=== PATIENT | female | born 1990 | race Caucasian/White ===

== ENCOUNTER 2019-01-01 16:24 | Emergency (ER) | payer OTHER ==
[2019-01-01 18:40] VITALS: BMI 27.6
[2019-01-01] MEDS ORDERED: Lactated Ringer's 1,000 ML IV SCH (19:00)
[2019-01-01 19:18] LABS: SQUAMOUS EPITHIAL 1 /hpf (0-5); URINE BACTERIA MANY (<OCC); URINE BILIRUBIN NEGATIVE (NEGATIVE); URINE BLOOD NEGATIVE (NEGATIVE); URINE CLARITY Clear (Clear); URINE COLOR Straw (YELLOW); URINE GLUCOSE (UA) NORMAL (Normal); URINE LEUKOCYTE ESTERASE NEG Leu/uL (Negative); URINE PROTEIN NEGATIVE (NEGATIVE); URINE UROBILINOGEN NORMAL mg/dL (0.2-1.0)
[2019-01-01 19:19] LABS: BASO % 0.3 % (0.0-2.0); EOS % 0.4 % (0.0-4.0); LYMPH # 1.6 K/uL (1.0-4.3); LYMPH % 16.7 % (20.0-40.0); MEAN CELL VOLUME 73.8 fL (81.0-99.0); MEAN CORPUSCULAR HEMOGLOBIN 23.1 pg (27.0-31.0); MEAN CORPUSCULAR HGB CONC 31.3 g/dL (33.0-37.0); MEAN PLATELET VOLUME 8.1 fL (7.2-11.7); MONO % 11.1 % (0.0-10.0); NEUT # 6.7 K/uL (1.8-7.0); NEUT % 71.5 % (50.0-75.0); NRBC % 0.2 % (0.0-2.0); RBC 3.04 Mil/uL (3.80-5.20); WHITE BLOOD COUNT 9.4 K/uL (4.8-10.8)
[2019-01-01 19:23] LABS: ALB/GLOB RATIO 1.2 (1.0-2.1); ALBUMIN 3.8 g/dL (3.5-5.0); ALT/SGPT 8 U/L (9-52); AST/SGOT 20 U/L (14-36); BLOOD UREA NITROGEN 5 mg/dL (7-17); CALCIUM 9.2 mg/dl (8.6-10.4); GFR NON-AFRICAN AMERICAN > 60
--- NOTE | 2019-01-01 19:36 | OBHP ---
Datetime: 01/01/2019 19:09 IP Adm Impression: , intrauterine ; No Active Labor; Intact Membranes IP Chief Complaint Other: Symptomatic anemia, s/p syncopal episode Twin IVF IP Admit Plan: Observation/Evaluation Admit Comment, IP Provider: Patient is a 28 year old at 26w4d JAMIA 04/05/19 by US who presents to the unit from Dr Mderano's office (heme/onc) for evaluation. Patient was referred to Dr Medrano for a nemia workup. Per the her hemoglobin was 7.3. On arrival to see Dr Medrano today, the patient h ad a syncopal episode. She did not fall or hit her head. Her was able to catch her. Per the p atient she had another similar syncopal episode 3 weeks ago at home. She states that prior to this sh e has never been told that she was anemia. Currently she denies any complaints. She denies headaches, dizziness, cp, palpitations, sob, abdominal pain or urinary symptoms. She endors +FM, denies CTX, VB , LOF. Patient is a private of Dr Lisa Tomlinson. Issues: IVF pregnany, date of implantation was 07/18/18 Anemia in - last hemoglobin was 7.3 Twin gestation OB Hx: . 2013 SAB at 7 weeks 2. Current [employer] Hx: LMP 05/18/18 [facility] 13 x regular x 5 days Reports having a history of fibroids and ovarian cysts Denies any history of abnormal pap smears Allergies: NKDA Medications: PNV, Folic acid Medical History: Denies Surgical History: Denies Social History: Denies alcohol, tobacco, drug use; lives with , for 7 years Family History: Mother - healthy; Father - healthy PE: see above A/P: 28 year old at 26w4d twin gestation who was sent from the office for symptomatic anem ia, s/p syncopal episode -CEFM and TOCO -Labs: CBC, CMP, T+S, ferritin, reticulocyte count, vitamin B12, folate, urinalysis -Started on IV fluid hydration -Patient has been type and crossed two units -Discussed the case with Dr Medrano who recommends transfusing two units of PRBCs as the patient is symptomatic -Dr Lisa Tomlinson is aware Plan discussed with Dr Stephen Betancur DO PGY-2 Pelvic Type - PN: Adequate Extremities - PN: Normal Abdomen - PN: Normal Back - PN: Normal Breast - PN: Not Done Lungs - PN: Normal Heart - PN: Normal Thyroid - PN: Normal Neurologic - PN: Normal HEENT - PN: Normal General - PN: Normal FHR - Baseline A Provider: 160/156 Membranes, Provider: Intact Comments, ACOG Physical Exam: Gen: NAD, AAOX3 CV: Tachycardic, no murmurs Lungs: CTA B/L Abd: soft, gravid Ext: No clubbing, cyanosis, edema EFM: Baby A 160bpm (RLQ), Baby 155 bpm (hypogastrium) Gestation - Est Wks by US: 26.4 EGA AdmitDate IP: 26.4 Vital Signs Provider: Reviewed IP Chief Complaint: Other NICHD Variability Prov Fetus A: Moderate 6-25bpm NICHD Accel Fetus A IP Provider: 10X10 FHR Category Provider Fetus A: Category I NICHD Decel Fetus A IP Provider: None Genitourinary Exam: Normal DTRs - PN: Normal
[2019-01-01 20:28] LABS: FOLATE > 20.0 ng/mL
[2019-01-01] MEDS ORDERED: Betamethasone Soluspan 30 mg/5mL Inj Susp IM ONE (21:48)
[2019-01-01] MEDS ORDERED: Magnesium Sulfate 4 gm/100 ml 4 GM/100 ML BAG IVPB ONE (21:50)
--- NOTE | 2019-01-01 22:06 | OBADHP ---
Datetime: 01/01/2019 21:00 Membranes, Provider: Intact Contraction Comments Provider: 3-4 mins Gestation - Est Wks by US: 26.4 Vital Signs Provider: Reviewed; Within Normal Limits Dilatation, Provider: 0 Datetime: 01/01/2019 19:09 IP Chief Complaint Other: Symptomatic anemia, s/p syncopal episode Twin IVF Admit Comment, IP Provider: Patient is a 28 year old at 26w4d JAMIA 04/05/19 by US who presents to the unit from Dr Medrano's office (heme/onc) for evaluation. Patient was referred to Dr Medrano for a nemia workup. Per the her hemoglobin was 7.3. On arrival to see Dr Medrano today, the patient h ad a syncopal episode. She did not fall or hit her head. Her was able to catch her. Per the p atient she had another similar syncopal episode 3 weeks ago at home. She states that prior to this sh e has never been told that she was anemia. Currently she denies any complaints. She denies headaches, dizziness, cp, palpitations, sob, abdominal pain or urinary symptoms. She endors +FM, denies CTX, VB , LOF. Patient is a private of Dr Lisa Tomlinson. Issues: IVF pregnany, date of implantation was 07/18/18 Anemia in - last hemoglobin was 7.3 Twin gestation OB Hx: 1. 2013 SAB at 7 weeks 2. Current [employer] Hx: LMP 05/18/18 [facility] 13 x regular x 5 days Reports having a history of fibroids and ovarian cysts Denies any history of abnormal pap smears Allergies: NKDA Medications: PNV, Folic acid Medical History: Denies Surgical History: Denies Social History: Denies alcohol, tobacco, drug use; lives with , for 7 years Family History: Mother - healthy; Father - healthy PE: see above A/P: 28 year old at 26w4d twin gestation who was sent from the office for symptomatic anem ia, s/p syncopal episode UC's Q 3-4 mins recorded and palpated but not perceived by the patient SVE closed and long Fibronectin collected and sent prior to SVE and pt denied any sex within the past 72 hours NST Reactive x 2 -Labs: CBC, H_H 7.0/22.4 CMP, T+S, ferritin, reticulocyte count, vitamin B12, folate, urinalysis pending -IV fluid hydration with LR -Patient has been type and crossed two units -Discussed the case with Dr Medrano who recommends transfusing two units of PRBCs as the patient is symptomatic -Dr Lisa Tomlinson is aware Plan discussed with Dr Stephen Betancur DO PGY-2 Pt seen and examined with Dr. Betancur and all of her findings and POC were reviewed and agreed on Pelvic Type - PN: Adequate Extremities - PN: Normal Abdomen - PN: Normal Back - PN: Normal Breast - PN: Not Done Lungs - PN: Normal Heart - PN: Normal Thyroid - PN: Normal Neurologic - PN: Normal HEENT - PN: Normal General - PN: Normal FHR - Baseline A Provider: 160/156 Comments, ACOG Physical Exam: Gen: NAD, AAOX3 CV: Tachycardic, no murmurs Lungs: CTA B/L Abd: soft, gravid Ext: No clubbing, cyanosis, edema EFM: Baby A 160bpm (RLQ), Baby 155 bpm (hypogastrium) IP Chief Complaint: Other NICHD Variability Prov Fetus A: Moderate 6-25bpm NICHD Accel Fetus A IP Provider: 10X10 FHR Category Provider Fetus A: Category I NICHD Decel Fetus A IP Provider: None Genitourinary Exam: Normal DTRs - PN: Normal EGA AdmitDate IP: 26.4 IP Adm Impression: , intrauterine ; No Active Labor; Intact Membranes IP Admit Plan: Observation/Evaluation
--- NOTE | 2019-01-01 22:09 | OBPN ---
Datetime: 01/01/2019 21:00 IP Progress Impression Other: Symptomatic acute Anemia IP Progress Impression: Reassuring heart rate; labor Membranes, Provider: Intact Contraction Comments Provider: 3-4 mins Gestation - Est Wks by US: 26.4 IP Progress Note Comment: Pt seen and examined again Persistent Uterine contractions although still not perceived by patient FHT's reassuring x 2 Still waiting for the blood to be ready for transfusion Discussed with Dr. Tomlinson the present situation regarding tocolysis and she stated that she will di scussed with Dr. Warren [facility] and will let me know their plan of care Vital Signs Provider: Reviewed; Within Normal Limits Dilatation, Provider: 0 Datetime: 01/01/2019 19:09 FHR - Baseline A Provider: 160/156 NICHD Accel Fetus A IP Provider: 10X10 FHR Category Provider Fetus A: Category I NICHD Variability Prov Fetus A: Moderate 6-25bpm NICHD Decel Fetus A IP Provider: None
--- NOTE | 2019-01-01 22:32 | OBDCSUM ---
Datetime: 01/01/2019 22:08 Discharged to, Provider: Ambulance transfer to [facility] Disch Instr Activity: Bedrest Disch Instr Diet: Regular Discharge Diagnosis, Provider: Labor Discharge Comment, Provider: 27 weeks twin (IVF)/Pt of Dr. Tomlinson Symptomatic Acute Anemia/Blood transfusion in progress Regular contractions unresponsive to IV Hydration Had 4 grams of Magnesium Sulfate as a bolus Received Celestone 12 mg IM x 1 at 22:12 Will transfer to [facility] to the care of CHARLES Carrera as per Dr. Tomlinson's instructions Will stop the transfusion for the transportation time as per Dr. Warren Pt left in Stable and Satisfactory condition Discharge Diagnosis Prov Other: Twin gestation at 27 weeks IVF contractions Symptomatic Acute Anemia
[2019-01-02 05:04] VITALS: BP 107/50; PULSE 121
== END 2019-01-01 22:45 | disposition short-term general hospital (02) | DRG 831 ==
LOC: C.EROB 16:24 → UNDOADMIN 19:51 → C.4D 19:51 → UNDODISIN 22:45 → C.EROB 22:45
PROVIDERS: ADMIT Obstetrics & Gynecology
PROC: 30233N1 Transfusion of Nonautologous Red Blood Cells into Peripheral Vein, Percutaneous Approach (ICD-10-PCS; principal; 2019-01-01)
DX: O99.012 Anemia complicating pregnancy, second trimester (principal); O60.02 Preterm labor without delivery, second trimester; Z3A.27 27 weeks gestation of pregnancy; O26.892 Other specified pregnancy related conditions, second trimester; R00.0 Tachycardia, unspecified